=== PATIENT | female | born 1945 | race Two or more races ===

== ENCOUNTER 2019-10-29 06:00 | Day surgery (SDC) | payer OTHER ==
[~2019-10-29 06:00] MED LIST: COZAAR100 MG PO; GLUCOPHAGE XR750 MG PO; HORIZANT300 MG PO; HUMALOG MIX 75/10 ML SQ; JANUMET 50-1,01 EACH PO; LASIX20 MG PO; NORVASC5 MG PO; TOPROL XL100 MG PO; XARELTO20 MG PO; ZOCOR40 MG PO
[2019-10-29] MEDS ORDERED: ULTRACET PO (12:24)
[2019-10-29] MEDS ORDERED: CIPRO500 MG PO (12:26)
== END 2019-10-29 15:40 | disposition home or self-care (01) ==
LOC: CIR.AMB 06:00
PROVIDERS: ATTEND Obstetrics & Gynecology Gynecology
DX: N81.3 Complete uterovaginal prolapse (principal); Z20.828 Contact with and (suspected) exposure to other viral communicable diseases

== ENCOUNTER 2021-05-11 09:54 | Outpatient (CLI) | payer OTHER ==
[~2021-05-11 09:54] MED LIST changes: +CIPRO500 MG PO; +ULTRACET PO
== END 2021-05-11 09:55 | disposition home or self-care (01) ==
LOC: NUCLEAR 09:54
PROVIDERS: ATTEND Internal Medicine Cardiovascular Disease
DX: G30.9 Alzheimer's disease, unspecified (principal); R41.2 Retrograde amnesia
CPT/HCPCS: 78803; A9557